=== PATIENT | female | born 2000 | race Caucasian/White ===

== ENCOUNTER 2022-12-28 11:20 | Emergency (ER) | payer OTHER ==
[~2022-12-28] VITALS: Ht 177.8 cm; Wt 72.7 kg
[2022-12-28 11:41] VITALS: BP 129/86; PULSE 80; RESP 18; O2SAT 97
[2022-12-28 12:26] VITALS: TEMP 97.6
== END 2022-12-28 12:29 | disposition home or self-care (01) ==
LOC: ER 11:20
DX: S61.231A Puncture wound without foreign body of left index finger without damage to nail, initial encounter (principal); W46.1XXA Contact with contaminated hypodermic needle, initial encounter; Y93.89 Activity, other specified; Y92.89 Other specified places as the place of occurrence of the external cause; Y99.8 Other external cause status
CPT/HCPCS: 99281